=== PATIENT | male | born 1955 | race Asian ===

== ENCOUNTER 2024-04-12 09:11 | Emergency (ER) | payer OTHER, SELFPAY ==
[2024-04-12] VITALS (8 sets, daily range): BP systolic 123–144; BP diastolic 77–113; PULSE 83–102; RESP 16–23; TEMP 36.8–37.2; O2SAT 95–98; BMI 24.3
--- NOTE | 2024-04-12 09:34 | XR_ITS ---
Examination: PA lateral chest 2 views TECHNIQUE: Upright PA lateral chest 2 views Exam date and time: April 12, 2024 at 0948 hours INDICATIONS: Coughing 2 weeks FINDINGS: Severe pneumonia in the right upper lobe with prominent right hilum Mild prominence left ventricle Moderate osteopenia IMPRESSION: Severe pneumonia in the right upper lobe with prominent right hilum, follow-up chest imaging strongly recommended to document clearing and exclude underlying right mediastinal tumor
--- NOTE | 2024-04-12 09:50 | PD.EDRME ---
Rapid Medical Screening Exam RME Arrival date/time: 04/12/24 09:11 68-year-old male presents emergency department complains of cough and abdominal pain ongoing x 2 weeks Chief Complaint: Flu Like Symptoms Time Seen by Provider: 04/12/24 09:14 Vital signs: Vital Signs Temperature 98.2 F 04/12/24 09:22 Pulse Rate 102 H 04/12/24 09:22 Respiratory Rate 18 04/12/24 09:22 Blood Pressure 144/77 H 04/12/24 09:22 Pulse Oximetry (%) 96 04/12/24 09:22 Oxygen Delivery Method Room Air 04/12/24 09:22
[2024-04-12 09:51] LABS: Basophils # (Auto) 0.1 Thou/mm3 (0.0-0.2); Basophils % (Auto) 1 % (0-2.5); Eosinophils # (Auto) 1.2 Thou/mm3 (0.0-0.5); Eosinophils % (Auto) 10 % (0-10); Hematocrit 39.9 % (41.0-53.0); Hemoglobin 13.6 g/dL (13.5-16.0); Immature Granulocytes % (Auto) 1 % (0-0); Immature Granulocytes Auto 0.11 Thou/mm3 (0.00-0.00); Lymphocytes # (Auto) 1.8 Thou/mm3 (1.0-4.8); Lymphocytes % (Auto) 16 % (10-50); Mean Corpuscular HGB Conc 34.1 g/dl (31.0-37.0); Mean Corpuscular Hemoglobin 30.4 pg (25.0-35.0); Mean Corpuscular Volume 89 fL (80-100); Monocytes # (Auto) 0.8 Thou/mm3 (0.0-0.8); Monocytes % (Auto) 7 % (0-12); Neutrophils # (Auto) 7.6 Thou/mm3 (1.8-7.7); Neutrophils % (Auto) 66 % (37-80); Nucleated Red Blood Cell % 0 /100 WBC (0); Platelet Count 652 Thou/mm3 (140-440); RDW Standard Deviation 42.4 fL (35.1-43.9); Red Blood Count 4.48 Miln/mm3 (4.50-5.90); White Blood Count 11.5 Thou/mm3 (3.8-10.6)
[2024-04-12 10:08] LABS: Alanine Aminotransferase 62 U/L (10-49); Albumin, Serum 3.6 gm/dL (3.4-4.8); Albumin/Globulin Ratio 0.9 (1.2-2.2); Alkaline Phosphatase 168 U/L (46-116); Anion Gap 5 (7-16); Aspartate Amino Transferase 43 U/L (0-34); BUN/Creatinine Ratio 11 Ratio (12-20); Bilirubin,Total 0.5 mg/dL (0.3-1.2); Blood Urea Nitrogen 9 mg/dL (9-23); Calcium 8.8 mg/dL (8.3-10.6); Calcium (Corrected) 9.1 mg/dL (8.5-10.1); Carbon Dioxide 28.2 mMol/L (20.0-31.0); Chloride 98 mMol/L (98-107); Creatinine (Component) 0.8 mg/dL (0.6-1.3); Estimated Creatinine Clearance 76.9 mL/min (>60); Globulin 4.1 gm/dL (2.3-3.5); Glucose 119 mg/dL (74-106); Lipase 30 U/L (12-53); Osmolality,Calculated 262 (275-295); Potassium 4.1 mMol/L (3.4-5.1); Sodium 131 mMol/L (136-145); Total Protein 7.7 gm/dL (5.7-8.2); eGFR > 60 See Note
--- NOTE | 2024-04-12 10:12 | PC.NURSE ---
Pt came from ED lobby c/o dry cough x2 weeks, lower midline ABD pain, chest pain, and lower back pain every time I cough. Pt connected to monitor at this time.
[2024-04-12] MEDS: MethylPREDNISolone SOD SUCC 62.5 MG/ML 2ML VIAL 125 MG IVP (10:35)
[2024-04-12] MEDS: cefTRIAXone/D5w 1gm IV premix 50 ML IV (10:35)
[2024-04-12 10:41] LABS: Lactate (Lactic Acid) 1.1 mMol/L (0.4-2.0)
[2024-04-12] MEDS: ALBUTEROL/IPRATROPIUM (Duoneb) RT SOL 3 ML NEBU INH (10:46)
--- NOTE | 2024-04-12 10:46 | PD.EDURI ---
Upper Respiratory Inf. RME/HPI General Chief Complaint: Flu Like Symptoms Stated Complaint: Cough, dry X 2 weeks, chest pain, back pain. abd Time Seen by Provider: 04/12/24 09:14 Arrival date/time: 04/12/24 09:11 RME / HPI RME / HPI Narrative: 04/12/24 09:11 68-year-old male presents emergency department complains of cough and abdominal pain ongoing x 2 weeks This section includes all my notes and documentations, including HPI, PE, MDM, Procedure Notes, and PLAN. Marquis Mansfield MD HPI: 68 year old male with no stated chronic medical history presents to the ED for complaint of a dry cough beginning 2 weeks ago. Accompanied by feeling feverish, on/off chills, and pain to his chest/back/abdomen which he attributes to coughing. States he has taken Robitussin cough syrup without improvement. Denies taking any prescription medications. Denies sore throat, sweats, n/v/d, or urinary symptoms. No other complaints. ROS: Respiratory: negative except as documented in HPI. Musculoskeletal: negative except as documented in HPI. Skin: negative except as documented in HPI. Neurological: negative except as documented in HPI. Physical Exam: General: Alert and oriented. Hacking cough noted. Eyes: Conjunctivae and lids clear. ENT: No nasal congestion. Pharynx normal. Tympanic membrane normal bilaterally. Neck: Supple. Heart: RRR. Lungs: No respiratory distress. Moderately decreased air movement with Rales in the right field. Chest: No tenderness. Legs: No clubbing, cyanosis, edema. Skin: Warm and dry. Neuro: Alert and oriented X 3. I reviewed all diagnostic test results. My interpretation of the chest x-ray is right sided pneumonia. Blood tests and urine tests are unremarkable. At this point, diagnoses include pneumonia. Treatment here included Solu-Medrol 125 mg IV, DuoNeb, Rocephin 1 g IV, and Zithromax 500 mg IV. Significant improvement noted subjectively and objectively. Recommended a trial of outpatient treatment. Based on my best medical judgment, made decision no further evaluation or treatment indicated at this time. Patient understands and agrees to the discharge instructions customized and printed, see below. Discharge instructions from Dr. Mansfield: --No physical exertion for 3 days to help rest the lungs. ?No smoking or exposure to smoking or pets or dust or cold or humidity. --Zithromax and cefdinir to kill the germs causing the pneumonia. --Prednisone to help decrease the swelling in the airways. --Albuterol 2 puffs every 4-6 hours for 24 hours to help keep the airways open.? Then as needed for cough or shortness of breath. --See a private doctor on 04/16/2024 for recheck. Ask for help until you are completely better. Ask to review all diagnostic test results from today, including official radiology report(s), to make sure you receive all necessary follow-ups and monitoring, including chest x-ray and CT scan in the future to make sure there is nothing serious under your pneumonia. --Seek immediate medical care with worsening or with any concerns. Related Data Home Medications ?Medication ?Instructions ?Recorded ?Confirmed guaifenesin 100 mg/5 mL oral liquid 200 mg PO Q4H PRN Cough 04/12/24 04/12/24 Previous Rx's ?Medication ?Instructions ?Recorded albuterol sulfate 90 mcg/actuation 2 inh inhalation QID PRN shortness 04/12/24 aerosol inhaler of breath or wheezing #8.5 grams azithromycin 500 mg tablet 500 mg PO QDAY 3 days #3 tabs 04/12/24 (Zithromax TRI-SALEEM) cefdinir 300 mg capsule 300 mg PO BID #14 caps 04/12/24 prednisone 50 mg tablet 50 mg PO QDAY #3 tabs 04/12/24 Allergies Allergy/AdvReac Type Severity Reaction Status Date / Time No Known Allergies Allergy Verified 07/04/22 05:58 Review of Systems Review of Systems Systems Reviewed: All systems reviewed, normal except as documented Past Medical History Past Medical History CARDIAC: Positive Hypercholesterolemia; Negative Congestive Heart Failure RESPIRATORY: Negative Chronic Obstructive Pulmonary Disease (COPD) GENITOURINARY: Negative Renal Disease ENDOCRINE: Negative Diabetes Mellitus Type 1 or Diabetes Mellitus Type 2 Social History SMOKING STATUS: Former smoker ED Exam Narrative Physical exam: As noted in HPI Course Quality Measures none Orders Category Date Time Status Bedside COVID-19 Antigen Test NOW Care 04/12/24 09:34 Active Bedside Influenza A&B Antigen Test NOW Care 04/12/24 09:34 Completed XR chest 2V Stat Exams 04/12/24 09:34 Completed Blood Culture (Lab) Stat Lab 04/12/24 10:35 Received CBC Stat Lab 04/12/24 09:45 Completed Cocci Serology IgM with reflex to IgG [Cocci Serology, Lab 04/12/24 10:32 Received Unk History] Stat Comprehensive Metabolic Panel Stat Lab 04/12/24 09:45 Completed Lactic Acid [Lactate (Lactic Acid)] Stat Lab 04/12/24 10:32 Completed Lipase Stat Lab 04/12/24 09:45 Completed Procalcitonin Stat Lab 04/12/24 10:32 Completed UA, C/S IF [Urinalysis, C/S if Indicated] Stat Lab 04/12/24 11:23 Completed Albuterol/Ipratr Rt Casandra [Duoneb Rt Casandra] Med 04/12/24 10:16 Discontinued 3 ml INH X1 ONE Azithromycin Inj [Zithromax Inj] 500 mg Med 04/12/24 10:16 Discontinued Sodium Chloride 0.9% 250 ml [Ns] 250 ml IV X1 MethylPREDNISolone.* [SoluMEDROL Inj] Med 04/12/24 10:16 Discontinued 125 mg IVP X1 ONE cefTRIAXone/D5w 1gm IV premix [Rocephin/D5w 1gm IV Med 04/12/24 10:16 Discontinued premix] 50 ml IV X1 Vital Signs Vital signs: Vital Signs Temperature 98.2 F 04/12/24 09:22 Pulse Rate 102 H 04/12/24 09:22 Respiratory Rate 18 04/12/24 09:22 Blood Pressure 144/77 H 04/12/24 09:22 Pulse Oximetry (%) 96 04/12/24 09:22 Oxygen Delivery Method Room Air 04/12/24 09:22 Pulse ox is 96% on room air which is adequate. Upper Respiratory Infection MDM Narrative MDM Narrative:: Rosana Fabian am scribing for and in the presence of Dr. Mansfield. Patient data External records reviewed:: [facility] previous records (I reviewed ED visit on 07/04/2022) Clinical information provided by:: patient Social determinants that could affect healthcare access:: none Patient has the following chronic illnesses:: None reported How is presenting disease/condition affected by chronic disease/condition?: no chronic disease Evaluation data The following diagnostics were reviewed and interpreted by me:: lab results and radiology exam(s) Lab and/or radiology exams considered but not ordered:: None Interpretation Summary: Ordering Physician: Niesha MARVIN)Baltazar NP Date of Service: 04/12/24 Procedure(s): XR chest 2V Accession Number(s): [id number] cc: Niesha MARVIN),Baltazar MCINTYRE; Rayo Garinca MD; NO PRIMARY/FAMILY,PHYSICIAN~ Examination: PA lateral chest 2 views TECHNIQUE: Upright PA lateral chest 2 views Exam date and time: April 12, 2024 at 0948 hours INDICATIONS: Coughing 2 weeks FINDINGS: Severe pneumonia in the right upper lobe with prominent right hilum Mild prominence left ventricle Moderate osteopenia IMPRESSION: Severe pneumonia in the right upper lobe with prominent right hilum, follow-up chest imaging strongly recommended to document clearing and exclude underlying right mediastinal tumor Dictated By: Rayo Garnica MD Signed By: <Electronically signed by Rayo Garnica MD in OV> 04/12/24 1026 Medications / Prescriptions Medications or Prescriptions considered but not ordered:: None Medication administrations:: Medication Administration History Discontinued Medications Albuterol/Ipratropium (Albuterol/Ipratropium (Duoneb) Rt Casandra 3 Ml Nebu) 3 ml INH X1 ONE Stop: 04/12/24 10:17 Last Admin: 04/12/24 10:46 Dose: 3 ml Documented By: Azithromycin 500 mg/ Sodium (Chloride) 250 mls @ 250 mls/hr IV X1 ONE Stop: 04/12/24 11:15 Last Infusion: 04/12/24 12:14 Dose: Infused Documented By: Admin: 04/12/24 11:07 Dose: 250 mls/hr Documented By: Ceftriaxone Sodium/Dextrose (Rocephin/D5w 1gm Iv Premix) 50 mls @ 100 mls/hr IV X1 ONE Stop: 04/12/24 10:45 Last Infusion: 04/12/24 11:03 Dose: Infused Documented By: Admin: 04/12/24 10:35 Dose: 100 mls/hr Documented By: Methylprednisolone Sodium Succinate (Methylprednisolone Sod Succ 62.5 Mg/Ml 2ml Vial) 125 mg IVP X1 ONE Stop: 04/12/24 10:17 Last Admin: 04/12/24 10:35 Dose: 125 mg Documented By: GM See above Consultations Consultation(s) initiated? (list below): No Diagnosis Upper Respiratory Differential Diagnosis: upper respiratory infection, sinusitis, viral infection, bronchitis and other (Pneumonia ) Most likely diagnosis given after review of the tests above:: Pneumonia Admission Indicated Admission indicated?: not indicated Admission Request Was there a request for admission?: No Disposition Plan Disposition Plan: Discharge Discharge Attestation Discharge Attestation: The patient and all family members were given an opportunity to ask questions and understood the discharge instructions. Discharge instructions specifically effects, indications for sooner follow up or return to the emergency department, and the expected course of current diagnosis. Patient condition: Stable Discharge Plan Plan Patient Disposition: HOME (Self Care) Prescriptions/Referrals Prescriptions/Med Rec: New albuterol sulfate 90 mcg/actuation HFA aerosol inhaler 2 inh inhalation QID PRN (Reason: shortness of breath or wheezing) Qty: 8.5 0RF cefdinir 300 mg capsule 300 mg PO BID Qty: 14 0RF azithromycin [Zithromax TRI-SALEEM] 500 mg tablet 500 mg PO QDAY 3 Days Qty: 3 0RF prednisone 50 mg tablet 50 mg PO QDAY Qty: 3 0RF No Action guaifenesin [Robitussin] 100 mg/5 mL Liquid 200 mg PO Q4H PRN (Reason: Cough) Referrals: No Primary/Family,Physician [Primary Care Provider] - In 1 week Problem List Clinical Impression: Pneumonia Patient/Caregiver Discharge Instructions Discharge Activity: activity as tolerated Education Materials: Treating Pneumonia Additional Instructions: Discharge instructions from Dr. Mansfield: --No physical exertion for 3 days to help rest the lungs. ?No smoking or exposure to smoking or pets or dust or cold or humidity. --Zithromax and cefdinir to kill the germs causing the pneumonia. --Prednisone to help decrease the swelling in the airways. --Albuterol 2 puffs every 4-6 hours for 24 hours to help keep the airways open.? Then as needed for cough or shortness of breath. --See a private doctor on 04/16/2024 for recheck. Ask for help until you are completely better. Ask to review all diagnostic test results from today, including official radiology report(s), to make sure you receive all necessary follow-ups and monitoring, including chest x-ray and CT scan in the future to make sure there is nothing serious under your pneumonia. --Seek immediate medical care with worsening or with any concerns. Print Language: [place]arag[place] Stand Alone Forms: Alissa Award Info., Patient Portal Info Letter
[2024-04-12] MEDS: AZITHROMYCIN INJ 500 MG in SODIUM CHLORIDE 0.9% 250 ML 250 ML 250 MG IV (11:07)
[2024-04-12 11:12] LABS: Procalcitonin 0.72 ng/ml (0.0-0.49)
[2024-04-12 11:35] LABS: Collection Type, Urine Clean Catch
[2024-04-12 11:38] LABS: Bilirubin,Urine Negative (Negative); Blood,Urine Trace (Negative); Clarity,Urine Clear (Clear/Hazy); Color,Urine Yellow (Lt Yel-Yel); Culture Indicated,Urine Not Indicated; Glucose, Urine Negative (Negative); Ketones,Urine Negative (Negative); Leukocyte Esterase,Urine Negative (Negative); Nitrite,Urine Negative (Negative); PH,Urine 6.5 (5.0-7.0); Protein,Urine 1+ (Neg - Trace); RBC,Urine 10 /hpf (0-3); Specific Gravity,Urine 1.028 (1.001-1.035); Squamous Epithelial Cell,Urine < 1 /hpf (0-5); Urobilinogen,Urine Negative mg/dL (0.0-1.0); WBC,Urine 3 /hpf (0-5)
[2024-04-12 13:33] LABS: Cocci Serology, IgM Positive (Negative)
[2024-04-12 13:35] LABS: Cocid Sro, CF/ID (UCD) NO CHG* See Sep Rpt
== END 2024-04-12 13:00 | disposition home or self-care (01) ==
PROVIDERS: Nurse Practitioner Primary Care; Emergency Provider Emergency Medicine
DX: J18.9 Pneumonia, unspecified organism (principal); Z87.891 Personal history of nicotine dependence
CPT/HCPCS: 36415; 71046; 80053; 81001; 83605; 83690; 84145; 85025; 86635; 87040; 87400; 87811; 94640; 96365; 96367; 96375; 99284; A9270; J0456; J0696; J2919; J7050